=== PATIENT | male | born 1965 | race African-American/Black ===

== ENCOUNTER 2020-08-12 13:02 | Emergency (ER) | payer BC, OTHER ==
[~2020-08-12] VITALS: Ht 188 cm; Wt 117.9 kg
[2020-08-12 13:05] VITALS: BP 134/70
== END 2020-08-12 14:52 | disposition home or self-care (01) ==
LOC: ER 13:02
DX: S86.912A Strain of unspecified muscle(s) and tendon(s) at lower leg level, left leg, initial encounter (principal); X58.XXXA Exposure to other specified factors, initial encounter; Y93.89 Activity, other specified; Y92.89 Other specified places as the place of occurrence of the external cause; Y99.8 Other external cause status
CPT/HCPCS: 93971

== ENCOUNTER → 2023-03-14 | Outpatient (CLI) | payer BC | END | disposition home or self-care (01) | LOC: Rad HDHVI 08:51 | PROVIDERS: ATTEND Internal Medicine Cardiovascular Disease | DX: I10 Essential (primary) hypertension (principal) | CPT/HCPCS: 93306 ==

== ENCOUNTER → 2023-03-25 | Outpatient (CLI) | payer BC ==
[~2023-03-25] VITALS: Ht 188 cm; Wt 124.7 kg
[~2023-03-25] MED LIST: ADENOSINE 105 MG in GIVE UN-DILUTED 0 ML IV ONE; ADENOSINE 90 MG/30 ML INJ IV ONE
== END | disposition home or self-care (01) ==
LOC: Rad HDHVI 12:14
PROVIDERS: ATTEND Internal Medicine Cardiovascular Disease
DX: I25.10 Atherosclerotic heart disease of native coronary artery without angina pectoris (principal); I10 Essential (primary) hypertension; E78.00 Pure hypercholesterolemia, unspecified; R06.02 Shortness of breath; R42 Dizziness and giddiness; Z82.49 Family history of ischemic heart disease and other diseases of the circulatory system
CPT/HCPCS: 78452; 93005; 96374; 96375; A9500; J0153

== ENCOUNTER 2023-05-29 06:58 | Day surgery (SDC) | payer BC, MEDICARE ==
[2023-05-26 10:10] LABS: Hematocrit 48.2 % (41.0-53.0); Hemoglobin 15.7 g/dL (13.5-17.5); Mean Corpuscular Hemoglobin 28.6 pg (28.0-32.0); Mean Corpuscular Hgb Conc. 32.7 g/dL (32.0-36.0); Mean Corpuscular Volume 87.4 fL (80.0-100.0); Red Blood Cells 5.51 10^6/uL (4.5-5.90); Red Cell Distribution Width 15.6 % (11.8-14.3)
[2023-05-26 10:21] LABS: Band Neutrophils % (manual) 0; Basophils % (manual) 0 (0.0-2.0); Blast Cells 0; Metamyelocytes % 0; Myelocytes % 0; Promyelocytes % 0
[2023-05-26 10:25] LABS: INR 0.98 (0.9-1.15); Partial Thromboplastin Time 29.2 SEC (24.5-34.5); Prothrombin Time 10.3 sec (9.3-11.8)
[2023-05-26 11:00] LABS: Chloride 108 mmol/L (98-107); Potassium 4.2 mmol/L (3.5-5.1); Sodium 140 mmol/L (136-145)
[2023-05-26 11:01] LABS: Anion Gap 4 (5-15); Calcium 9.6 mg/dL (8.5-10.1); Carbon Dioxide 28 mmol/L (20-30)
[2023-05-26 11:02] LABS: Eosinophils % (manual) 2 (0-7); Lymphocytes % (manual) 52 (10.0-50.0); Monocytes % (manual) 6 (0-12); Reactive Lymphocytes 16; Smudge Cells 10 /100 WBC
[2023-05-26 11:03] LABS: Giant Platelets Few; Platelet Estimate Adequate
[2023-05-26 11:06] LABS: BUN/Creatinine Ratio 4.5 (10.0-20.0); Blood Urea Nitrogen 6 mg/dL (9-23); Glucose 99 mg/dL (74-106)
[~2023-05-29] VITALS: Ht 188 cm; Wt 124.3 kg
[~2023-05-29 06:58] MED LIST changes: -ADENOSINE 105 MG in GIVE UN-DILUTED 0 ML IV ONE; -ADENOSINE 90 MG/30 ML INJ IV ONE; +ASPI1TAB20 PO; +ATOR40TA52 PO; +CILO100T PO; +CLOP75TA70 PO
[2023-05-29] MEDS ORDERED: MIDAZOLAM HCL 5 MG/ML-1ML VIAL IV ONE (08:15)
[2023-05-29] MEDS ORDERED: MIDAZOLAM HCL 2MG/2ML 2ml VIAL (1mg/ml) ONE ×2 (09:42→10:39)
[2023-05-29] MEDS ORDERED: MIDAZOLAM HCL 2MG/2ML 2ml VIAL (1mg/ml) IV ONE (10:39)
== END 2023-05-29 12:15 | disposition home or self-care (01) ==
LOC: CATH 06:58
PROVIDERS: ATTEND Internal Medicine Cardiovascular Disease
DX: I34.0 Nonrheumatic mitral (valve) insufficiency (principal); I38 Endocarditis, valve unspecified; Z79.82 Long term (current) use of aspirin; Z72.89 Other problems related to lifestyle; Z87.891 Personal history of nicotine dependence; Z79.899 Other long term (current) drug therapy; Z98.890 Other specified postprocedural states
CPT/HCPCS: 36415; 80048; 85007; 85027; 85610; 85730; 93312; J2250; J7030; 99152

== ENCOUNTER → 2023-10-15 | Outpatient (CLI) | payer BC, MEDICARE ==
[~2023-10-15] MED LIST changes: -CILO100T PO; +CILO100T3 PO
== END | disposition home or self-care (01) ==
LOC: Rad HDHVI 10:49
PROVIDERS: ATTEND Internal Medicine Cardiovascular Disease
DX: I70.203 Unspecified atherosclerosis of native arteries of extremities, bilateral legs (principal)
CPT/HCPCS: 93925

== ENCOUNTER → 2023-11-24 | Outpatient (CLI) | payer BC, MEDICARE ==
[2023-11-24 12:15] VITALS: BP 145/80; PULSE 75; RESP 16; O2SAT 97
[2023-11-24 12:39] VITALS: BP 141/75; PULSE 79; RESP 16; O2SAT 97
== END | disposition home or self-care (01) ==
LOC: Rad HDHVI 12:10
PROVIDERS: ATTEND Internal Medicine Cardiovascular Disease
DX: Z01.818 Encounter for other preprocedural examination (principal); I73.9 Peripheral vascular disease, unspecified
CPT/HCPCS: 71046; 93005; G0463

== ENCOUNTER 2023-11-27 07:16 | Day surgery (SDC) | payer BC, MEDICARE ==
[2023-11-24 14:50] LABS: Hematocrit 46.8 % (41.0-53.0); Mean Corpuscular Hemoglobin 29.4 pg (28.0-32.0); Mean Corpuscular Hgb Conc. 34.1 g/dL (32.0-36.0); Mean Corpuscular Volume 86.3 fL (80.0-100.0); Red Blood Cells 5.42 10^6/uL (4.5-5.90); White Blood Cell 9.7 10^3/uL (4.4-10.8)
[2023-11-24 15:07] LABS: INR 1.03 (0.9-1.15); Partial Thromboplastin Time 28.5 SEC (24.5-34.5); Prothrombin Time 10.9 sec (9.3-11.8)
[2023-11-24 15:28] LABS: Band Neutrophils % (manual) 0; Basophils % (manual) 0 (0.0-2.0); Blast Cells 0; Eosinophils % (manual) 0 (0-7); Metamyelocytes % 0; Myelocytes % 0; Promyelocytes % 0; Reactive Lymphocytes 0
[2023-11-24 15:31] LABS: Calcium 9.7 mg/dL (8.7-10.4); Chloride 108 mmol/L (98-107); Potassium 4.2 mmol/L (3.5-5.1); Sodium 139 mmol/L (136-145)
[2023-11-24 15:32] LABS: Anion Gap 10 (5-15); Carbon Dioxide 21 mmol/L (20-30)
[2023-11-24 15:37] LABS: BUN/Creatinine Ratio 4.6 (10.0-20.0); Blood Urea Nitrogen 6 mg/dL (9-23); Glucose 104 mg/dL (74-106)
[2023-11-24 18:22] LABS: Lymphocytes % (manual) 52 (10.0-50.0); Monocytes % (manual) 6 (0-12); Platelet Estimate Adequate
[~2023-11-27] VITALS: Ht 188 cm; Wt 124.7 kg
[~2023-11-27 07:16] MED LIST changes: -CILO100T3 PO
[2023-11-27] MEDS ORDERED: ANGIOMAX 250 MG VIAL IV ONE (09:45)
[2023-11-27] MEDS ORDERED: fentaNYL CITRATE 100 MCG/2 ML VL ONE (09:46)
[2023-11-27] MEDS ORDERED: SODIUM CHL 0.9% 0 ML ONE (09:46)
[2023-11-27] MEDS ORDERED: MIDAZOLAM HCL 2MG/2ML 2ml VIAL (1mg/ml) ONE (09:46)
[2023-11-27] MEDS ORDERED: IOHEXOL 350 MG/ML 100ML IJ ONE (09:46)
[2023-11-27] MEDS ORDERED: LIDOCAINE 2%HCL (LOCAL ANESTH.) INJ 20ML MDV ONE (09:47)
[2023-11-27] MEDS ORDERED: HYDROmorphone HCL 2 MG/ML VL/or syr ONE (10:19)
[2023-11-27] MEDS ORDERED: VERAPAMIL 2.5MG/ML INJ 2ML VIAL IV ONE (10:24)
[2023-11-27] MEDS ORDERED: HEPARIN SODIUM (PORCINE) 5000 UNITS/ML 1ML VIAL ONE (10:24)
== END 2023-11-27 13:40 | disposition home or self-care (01) ==
LOC: CATH 07:16
PROVIDERS: ATTEND Internal Medicine Cardiovascular Disease
DX: I70.212 Atherosclerosis of native arteries of extremities with intermittent claudication, left leg (principal); I10 Essential (primary) hypertension; E78.5 Hyperlipidemia, unspecified; Z87.891 Personal history of nicotine dependence; Z79.82 Long term (current) use of aspirin; Z79.01 Long term (current) use of anticoagulants
CPT/HCPCS: 36246; 36415; 75625; 75710; 80048; 85007; 85027; 85610; 85730; C1894; J1170; J1644; J2250; J3010; Q9967; 36247; 99152; 99153

== ENCOUNTER → 2024-01-02 | Outpatient (CLI) | payer BC, MEDICARE ==
[~2024-01-02] MED LIST changes: +IOHEXOL 350 MG/ML 100ML IJ ONE
[2024-01-02 09:27] VITALS: BP 156/76; PULSE 76; RESP 18; O2SAT 95
[2024-01-02 10:00] VITALS: BP 158/77; PULSE 80; RESP 16; O2SAT 95
== END | disposition home or self-care (01) ==
LOC: Rad HDHVI 09:10
PROVIDERS: ATTEND Internal Medicine Cardiovascular Disease
DX: I71.43 Infrarenal abdominal aortic aneurysm, without rupture (principal); I73.9 Peripheral vascular disease, unspecified
CPT/HCPCS: 75635; G0463; Q9967

== ENCOUNTER → 2024-09-21 | Outpatient (CLI) | payer OTHER ==
[~2024-09-21] VITALS: Ht 188 cm; Wt 122.5 kg
[~2024-09-21] MED LIST changes: +ADENOSINE 103 MG in GIVE UN-DILUTED 0 ML IV ONE; +ADENOSINE 90 MG/30 ML INJ IV ONE; -IOHEXOL 350 MG/ML 100ML IJ ONE
== END | disposition home or self-care (01) ==
LOC: Rad HDHVI 09:28
PROVIDERS: ATTEND Internal Medicine Cardiovascular Disease
DX: I49.1 Atrial premature depolarization (principal); I49.3 Ventricular premature depolarization; I25.10 Atherosclerotic heart disease of native coronary artery without angina pectoris; I11.0 Hypertensive heart disease with heart failure; I50.33 Acute on chronic diastolic (congestive) heart failure; R06.02 Shortness of breath; I73.9 Peripheral vascular disease, unspecified; E78.00 Pure hypercholesterolemia, unspecified; Z82.49 Family history of ischemic heart disease and other diseases of the circulatory system
CPT/HCPCS: 78452; 93017; A9500; J0153

== ENCOUNTER → 2024-09-24 | Outpatient (CLI) | payer OTHER ==
[~2024-09-24] MED LIST changes: -ADENOSINE 103 MG in GIVE UN-DILUTED 0 ML IV ONE; -ADENOSINE 90 MG/30 ML INJ IV ONE
== END | disposition home or self-care (01) ==
LOC: Rad HDHVI 08:52
PROVIDERS: ATTEND Internal Medicine Cardiovascular Disease
DX: I51.7 Cardiomegaly (principal); I50.33 Acute on chronic diastolic (congestive) heart failure; R06.02 Shortness of breath
CPT/HCPCS: 93306

== ENCOUNTER 2024-10-06 08:52 | Outpatient (CLI) | payer OTHER | END 2024-10-06 17:00 | disposition home or self-care (01) | LOC: Rad HDHVI 08:52 | PROVIDERS: ATTEND Internal Medicine Cardiovascular Disease | DX: I70.203 Unspecified atherosclerosis of native arteries of extremities, bilateral legs (principal) | CPT/HCPCS: 93925 ==

== ENCOUNTER 2025-03-23 10:03 | Outpatient (CLI) | payer OTHER, MEDICAID ==
[2025-03-23 10:17] VITALS: BP 190/90; PULSE 74; RESP 16; O2SAT 91
[2025-03-23 12:07] VITALS: BP 164/80; PULSE 61; RESP 16; O2SAT 92
== END 2025-03-23 17:00 | disposition home or self-care (01) ==
LOC: CHF HDHVI 10:03
PROVIDERS: ATTEND Internal Medicine Cardiovascular Disease
DX: Z01.810 Encounter for preprocedural cardiovascular examination (principal); I10 Essential (primary) hypertension; I38 Endocarditis, valve unspecified
CPT/HCPCS: 93005; G0463

== ENCOUNTER 2025-03-24 07:00 | Day surgery (SDC) | payer OTHER, MEDICAID ==
[2025-03-23 12:50] LABS: Hematocrit 47.9 % (41.0-53.0); Hemoglobin 16.2 g/dL (13.5-17.5); Mean Corpuscular Hemoglobin 29.1 pg (28.0-32.0); Mean Corpuscular Volume 85.9 fL (80.0-100.0)
[2025-03-23 12:58] LABS: Potassium 4.1 mmol/L (3.5-5.1); Sodium 141 mmol/L (136-145)
[2025-03-23 12:59] LABS: Anion Gap 6 (5-15); Carbon Dioxide 27 mmol/L (20-31); INR 1.01 (0.9-1.15); Partial Thromboplastin Time 28.7 SEC (24.5-34.5); Prothrombin Time 10.7 sec (9.3-11.8)
[2025-03-23 13:00] LABS: Calcium 9.1 mg/dL (8.7-10.4)
[2025-03-23 13:01] LABS: Chloride 108 mmol/L (98-107)
[2025-03-23 13:05] LABS: BUN/Creatinine Ratio 5.5 (10.0-20.0); Blood Urea Nitrogen 8 mg/dL (9-23); Glucose 96 mg/dL (74-106)
[2025-03-23 14:32] LABS: Total Cells Counted 100.0 (100)
[2025-03-24] VITALS (10 sets, daily range): BP systolic 148–194; BP diastolic 68–90; PULSE 53–72; RESP 12–19; O2SAT 97–100
[2025-03-24] MEDS ORDERED: MIDAZOLAM HCL 2MG/2ML 2ml VIAL (1mg/ml) IV ONE (08:30)
--- NOTE | 2025-03-24 09:50 | DVHDS ---
DATE OF DISCHARGE: 03/24/2025 The patient underwent successful transesophageal echocardiography, failed to demonstrate any valvular vegetation. The patient has some marantic lesion in the aortic valve, otherwise unremarkable. His ejection fraction is preserved. There is no evidence for thrombus in the left atrial appendage. No evidence for any valvular vegetation. Valvular anatomy and physiology of the mitral valve, tricuspid valve, and pulmonic valve are within normal limits. Follow up with me in one week. Stable at the time of discharge. DISPOSITION: Home. ACTIVITY: As instructed. DIET: 2 gram sodium diet. Fletcher Figueroa MD SA/JAMI/NELSON TID: [id number] RECEIPT: [id number]
--- NOTE | 2025-03-24 09:51 | DVHOP ---
DATE OF SURGERY: 03/24/2025 PROCEDURES: * ProSound transesophageal echocardiography. * Conscious sedation. DESCRIPTION OF PROCEDURE: The patient was prepped and draped in sterile condition. 1% Xylocaine and 3 mg of Versed was given for conscious sedation. Once the patient was adequately sedated using an Omniplane transesophageal probe, the esophagus was intubated and standard transesophageal echo images obtained. RESULTS: * Left ventricular function was normal. * Mitral valve did not have any vegetation with normal valvular function. * Tricuspid valve without any vegetation. Normal valvular function. No pericardial effusion noted. * Aortic valve has in the right coronary cusp, the patient had a thickening of the valve most consistent with a marantic lesion. No mobile component noted. No paravalvular leak was demonstrated. CONCLUSION: At this time, the patient does not have any evidence for endocarditis. At this time, the patient has a marantic lesion in the right coronary cusp. Continue all current medication. No changes are required. Conservative medical management. Fletcher Figueroa MD SA/KOLBY TID: [id number] RECEIPT: [id number]
--- NOTE | 2025-03-24 09:53 | DVHHP ---
ADMIT DATE: 03/24/2025 HISTORY OF PRESENT ILLNESS: The patient with history of hyperlipidemia. Now, with vegetation-like appearance in the aortic valve by transthoracic echocardiography, does not have a significant regurgitation. Therefore, it is felt the best to see whether the patient has endocarditis is to undergo transesophageal echocardiography. PERTINENT MEDICAL HISTORY: Significant for history of tobacco use in the past, but he occasionally smokes a cigar. He denies any cardiac arrest. He denies any diabetes. No history of dialysis. No history of heart failure. He had an angiography with angioplasty in 2019. CURRENT MEDICATIONS: Atorvastatin, clopidogrel, and aspirin therapy REVIEW OF SYSTEMS: He denies any fever, chills, melena, hematochezia, hematemesis, or hemoptysis. PHYSICAL EXAMINATION: VITAL SIGNS: Blood pressure is 134/88, pulse 70, O2 saturation 94% on room air. HEENT: Pupils are reactive. Funduscopic exam shows no AV nicking. Oral mucosa moist. Posterior pharynx without any exudate. NECK: No JVD appreciated. Carotid pulses are 2+ and symmetrical. PULMONARY: Clear to auscultation. CARDIOVASCULAR: Regular rate without S3, without S4. PMI is nondisplaced. ABDOMEN: Soft, nontender. Normal bowel sounds. Obese, unable to appreciate any organomegaly. EXTREMITIES: Unremarkable. 2+ pulses. Stool guaiac is negative. ASSESSMENT AND PLAN: Thus, patient with a vegetation, but appears to be marantic in nature but will do a transesophageal echocardiogram to rule out any aortic valve vegetation. We will make further recommendations after. Fletcher Figueroa MD SA/DUANE TID: [id number] RECEIPT: [id number]
== END 2025-03-24 12:00 | disposition home or self-care (01) ==
LOC: CATH 07:00
PROVIDERS: ATTEND Internal Medicine Cardiovascular Disease
DX: I33.0 Acute and subacute infective endocarditis (principal); I35.8 Other nonrheumatic aortic valve disorders; E78.5 Hyperlipidemia, unspecified; Z79.82 Long term (current) use of aspirin; Z79.899 Other long term (current) drug therapy; Z87.891 Personal history of nicotine dependence
CPT/HCPCS: 36415; 80048; 85007; 85027; 85610; 85730; 93312; J2250; J7030; 99152